=== PATIENT | male | born 1960 | race Caucasian/White ===

== ENCOUNTER 2021-07-23 17:08 | Inpatient (IN) ==
[2021-07-23] MEDS ORDERED: Ondansetron 4 MG/2 ML VIAL IVP ONE (21:10)
[2021-07-23] MEDS ORDERED: Morphine Sulfate 2 MG/ML SYRINGE IVP ONE (21:10)
[2021-07-23 21:20] LABS: Basophils # 0.1 K/mcL (0.0-0.2); Basophils % 0.6 %; Eosinophils # 0.2 K/mcL (0.0-0.6); Eosinophils % 1.9 %; Hematocrit 33.7 % (37.5-50.1); Hemoglobin 10.6 g/dL (12.9-16.9); Immature Granulocytes % 1.1 % (0-4); Lymphocytes % 17.2 %; Mean Corpuscular HGB Conc 31.5 g/dL (31.6-35.5); Mean Corpuscular Hemoglobin 32.5 pg (28.0-33.3); Mean Corpuscular Volume 103.4 fL (83.0-100.0); Mean Platelet Volume 9.5 fL (9.4-12.4); Monocytes # 0.9 K/mcL (0.0-1.3); Monocytes % 7.9 %; Neutrophils # 8.4 K/mcL (1.6-8.9); Platelet Count 250 K/mcL (140-400); Red Blood Count 3.26 M/mcL (4.19-5.50); Red Cell Distribution Width 12.8 % (11.5-14.5); Segmented Neutrophils % 71.3 %; White Blood Count 11.7 K/mcL (4.3-11.1)
[2021-07-23 21:30] LABS: Prothrombin Time 11.4 Seconds (9.4-12.1)
[2021-07-23 21:43] LABS: Alanine Aminotransferase 12 Units/L (7-52); Albumin 4.2 g/dL (3.5-5.7); Albumin/Globulin Ratio 1.4 (1.1-2.2); Alkaline Phosphatase 106 Units/L (34-104); Aspartate Amino Transferase 13 Units/L (13-39); BUN/Creatinine Ratio 10 (6-26); Bilirubin,Total 0.3 mg/dL (0.3-1.0); Blood Urea Nitrogen 13 mg/dL (8-23); C-Reactive Protein 20 mg/L (Less than 10); Calcium 9.3 mg/dL (8.6-10.3); Carbon Dioxide 24 mEq/L (23-29); Chloride 106 mEq/L (98-107); Globulin 2.9 g/dL (2.4-3.5); Glucose 122 mg/dL (70-105); Osmolality,Calculated 283 (280-300); Potassium 4.4 mEq/L (3.5-5.1); Sodium 136 mEq/L (136-145); Total Protein 7.1 g/dL (6.4-8.9); eGFR For African Americans > 60 (> 60); eGFR For Non-African Americans 54 (> 60)
[2021-07-23 21:44] LABS: Troponin I < 0.03 ng/mL (< 0.04)
[2021-07-23] MEDS ORDERED: Bumetanide 1 MG/4 ML VIAL IVP STA (22:25)
[2021-07-23] MEDS ORDERED: cephALEXin 500 MG CAPSULE PO ONE (22:25)
[2021-07-23 23:53] LABS: Influenza A PCR Negative (Negative); Influenza B PCR Negative (Negative); Resp. Syncytial Virus PCR Negative (Negative); SARS-CoV-2 by PCR (In House) Negative (Negative)
[2021-07-24] MEDS ORDERED: Naloxone 0.4 MG/ML INJ IVP PRN (02:35)
[2021-07-24] MEDS ORDERED: Furosemide 20 MG/2 ML VIAL IVP ONE (02:43)
[2021-07-24] MEDS ORDERED: Perflutren Lipid Microsphere 1.3 ML in 0.9 % Sodium Chloride 8.7 ML IVP PRN (03:16)
[2021-07-24] MEDS: Nicotine 14 MG PATCH.TD24 TD SCH (03:29)
[2021-07-24] MEDS: *HR* HYDROcodone/Acet 5/325 mg TABLET PO PRN (03:33)
[2021-07-24] MEDS: Levalbuterol Neb 1.25 MG/3 ML IH SCH ×4 (03:52→21:01)
[2021-07-24 05:03] LABS: Hematocrit 31.8 % (37.5-50.1); Hemoglobin 9.6 g/dL (12.9-16.9); Mean Corpuscular HGB Conc 30.2 g/dL (31.6-35.5); Mean Corpuscular Hemoglobin 31.8 pg (28.0-33.3); Mean Corpuscular Volume 105.3 fL (83.0-100.0); Mean Platelet Volume 9.4 fL (9.4-12.4); Platelet Count 202 K/mcL (140-400); Red Blood Count 3.02 M/mcL (4.19-5.50); Red Cell Distribution Width 12.9 % (11.5-14.5); White Blood Count 9.1 K/mcL (4.3-11.1)
[2021-07-24 05:21] LABS: Chol/HDL Ratio 4.1 (0-4.9); Magnesium 1.6 mg/dL (1.6-2.6)
[2021-07-24 05:26] LABS: BUN/Creatinine Ratio 10 (6-26); Blood Urea Nitrogen 14 mg/dL (8-23); Calcium 8.8 mg/dL (8.6-10.3); Carbon Dioxide 23 mEq/L (23-29); Chloride 110 mEq/L (98-107); Glucose 121 mg/dL (70-105); Iron 50 mcg/dL (65-175); Osmolality,Calculated 282 (280-300); Potassium 4.5 mEq/L (3.5-5.1); Sodium 135 mEq/L (136-145); Troponin I < 0.03 ng/mL (< 0.04); eGFR For African Americans > 60 (> 60); eGFR For Non-African Americans 54 (> 60)
[2021-07-24 05:43] LABS: % Iron Saturation 17 % (20-55); Transferrin 213 mg/dL (203-362)
[2021-07-24 05:44] LABS: Ferritin 66 ng/mL (20-250)
[2021-07-24 05:50] LABS: Folate 6.1 ng/mL (3.0-16.0)
[2021-07-24] MEDS ORDERED: cefTRIAXone 1,000 MG in 0.9 % Sodium Chloride Mini Bag 100 ML IVPB SCH (06:00)
[2021-07-24 06:18] LABS: Estimated Average Glucose 143 mg/dl; Hemoglobin A1C 6.6 %
[2021-07-24] MEDS: *HR* Heparin 5,000 UNIT/ML VIAL SQ SCH ×3 (06:33→20:16)
[2021-07-24] MEDS: *HR* OxyCODONE Immed Rel 5 MG TABLET PO PRN ×2 (09:04→20:22)
[2021-07-24] MEDS: Doxycycline 100 MG CAPSULE PO SCH ×2 (11:37→20:15)
[2021-07-24] MEDS: Cyanocobalamin (B-12) 1,000 MCG TABLET PO SCH (16:06)
[2021-07-24] MEDS ORDERED: Furosemide 20 MG/2 ML VIAL IVP SCH (21:00)
[2021-07-25] MEDS: Acetaminophen 325 MG TABLET PO PRN (01:10)
[2021-07-25] MEDS: Levalbuterol Neb 1.25 MG/3 ML IH SCH ×2 (03:54→07:57)
[2021-07-25 05:24] LABS: Hematocrit 31.9 % (37.5-50.1); Hemoglobin 9.9 g/dL (12.9-16.9); Mean Corpuscular Hemoglobin 32.4 pg (28.0-33.3); Mean Corpuscular Volume 104.2 fL (83.0-100.0); Mean Platelet Volume 9.3 fL (9.4-12.4); Platelet Count 215 K/mcL (140-400); Red Blood Count 3.06 M/mcL (4.19-5.50); Red Cell Distribution Width 12.6 % (11.5-14.5); White Blood Count 10.7 K/mcL (4.3-11.1)
[2021-07-25 05:40] LABS: Calcium 8.9 mg/dL (8.6-10.3); Potassium 4.9 mEq/L (3.5-5.1)
[2021-07-25] MEDS: *HR* Heparin 5,000 UNIT/ML VIAL SQ SCH ×3 (05:57→23:24)
[2021-07-25] MEDS: Doxycycline 100 MG CAPSULE PO SCH ×2 (07:46→20:13)
[2021-07-25] MEDS: Cyanocobalamin (B-12) 1,000 MCG TABLET PO SCH (07:46)
[2021-07-25] MEDS: Nicotine 14 MG PATCH.TD24 TD SCH (07:46)
[2021-07-25] MEDS: *HR* OxyCODONE Immed Rel 5 MG TABLET PO PRN (07:49)
[2021-07-25] MEDS: Ondansetron 4 MG/2 ML VIAL IVP PRN (08:49)
[2021-07-25] MEDS ORDERED: Albumin 25% 25gram/100mL 25 GM/100 ML IV.SOLN IVPB ONE (10:23)
[2021-07-25] MEDS ORDERED: Ipratropium/Albuterol Neb 3 ML IH PRN (10:25)
[2021-07-25] MEDS: Sennosides/Docusate Sodium TABLET PO SCH ×2 (11:11→20:14)
[2021-07-25] MEDS: Ranolazine 500 MG TAB.ER.12H PO SCH ×2 (11:11→20:14)
[2021-07-25] MEDS ORDERED: Furosemide 20 MG/2 ML VIAL IVP ONE (12:00)
[2021-07-25] MEDS ORDERED: Sennosides/Docusate Sodium TABLET PO SCH (13:00)
[2021-07-25] MEDS: *HR* HYDROcodone/Acet 5/325 mg TABLET PO PRN ×2 (13:34→20:12)
[2021-07-25 15:34] LABS: Bilirubin,Urine Negative (Negative); Blood,Urine Negative (Negative); Clarity,Urine Clear (Clear); Color,Urine Colorless (Yellow); Glucose,Urine (UA) Normal (Normal); Ketones,Urine Negative (Negative); Leukocyte Esterase,Urine Negative (Negative); Nitrite,Urine Negative (Negative); Protein,Urine Negative (Neg-Trace); Urobilinogen,Urine Normal (Normal)
[2021-07-25 15:36] LABS: Creatinine,Urine 44 mg/dL
[2021-07-26 03:18] LABS: Hematocrit 32.3 % (37.5-50.1); Hemoglobin 9.8 g/dL (12.9-16.9); Mean Corpuscular HGB Conc 30.3 g/dL (31.6-35.5); Mean Corpuscular Hemoglobin 31.5 pg (28.0-33.3); Mean Corpuscular Volume 103.9 fL (83.0-100.0); Mean Platelet Volume 9.4 fL (9.4-12.4); Platelet Count 198 K/mcL (140-400); Red Blood Count 3.11 M/mcL (4.19-5.50); Red Cell Distribution Width 12.4 % (11.5-14.5); White Blood Count 8.3 K/mcL (4.3-11.1)
[2021-07-26 03:42] LABS: BUN/Creatinine Ratio 12 (6-26); Blood Urea Nitrogen 17 mg/dL (8-23); Calcium 9.3 mg/dL (8.6-10.3); Carbon Dioxide 27 mEq/L (23-29); Chloride 104 mEq/L (98-107); Glucose 128 mg/dL (70-105); Osmolality,Calculated 283 (280-300); Potassium 4.6 mEq/L (3.5-5.1); Sodium 135 mEq/L (136-145); eGFR For African Americans > 60 (> 60); eGFR For Non-African Americans 52 (> 60)
[2021-07-26] MEDS: *HR* HYDROcodone/Acet 5/325 mg TABLET PO PRN ×2 (04:45→14:12)
[2021-07-26] MEDS: *HR* Heparin 5,000 UNIT/ML VIAL SQ SCH ×3 (04:47→19:39)
[2021-07-26] MEDS: Cyanocobalamin (B-12) 1,000 MCG TABLET PO SCH (08:23)
[2021-07-26] MEDS: Ranolazine 500 MG TAB.ER.12H PO SCH ×2 (08:23→19:35)
[2021-07-26] MEDS: Sennosides/Docusate Sodium TABLET PO SCH ×2 (08:23→19:38)
[2021-07-26] MEDS: Doxycycline 100 MG CAPSULE PO SCH ×2 (08:23→19:38)
[2021-07-26] MEDS: Nicotine 14 MG PATCH.TD24 TD SCH (08:23)
[2021-07-26] MEDS: *HR* OxyCODONE Immed Rel 5 MG TABLET PO PRN ×2 (08:23→19:37)
[2021-07-26] MEDS: Ondansetron 4 MG/2 ML VIAL IVP PRN ×2 (08:28→21:29)
[2021-07-26] MEDS ORDERED: Albumin 25% 25gram/100mL 25 GM/100 ML IV.SOLN IVPB ONE (11:14)
[2021-07-26] MEDS ORDERED: Furosemide 20 MG/2 ML VIAL IVP ONE (11:30)
[2021-07-26] MEDS: Melatonin 3 MG TABLET PO SCH (22:17)
[2021-07-27] MEDS: Acetaminophen 325 MG TABLET PO PRN
[2021-07-27 05:08] LABS: Hematocrit 32.4 % (37.5-50.1); Hemoglobin 10.1 g/dL (12.9-16.9); Mean Corpuscular HGB Conc 31.2 g/dL (31.6-35.5); Mean Corpuscular Hemoglobin 31.5 pg (28.0-33.3); Mean Corpuscular Volume 100.9 fL (83.0-100.0); Mean Platelet Volume 9.2 fL (9.4-12.4); Platelet Count 194 K/mcL (140-400); Red Blood Count 3.21 M/mcL (4.19-5.50); Red Cell Distribution Width 12.1 % (11.5-14.5); White Blood Count 8.5 K/mcL (4.3-11.1)
[2021-07-27 05:23] LABS: BUN/Creatinine Ratio 14 (6-26); Blood Urea Nitrogen 20 mg/dL (8-23); Calcium 9.6 mg/dL (8.6-10.3); Carbon Dioxide 30 mEq/L (23-29); Chloride 104 mEq/L (98-107); Glucose 104 mg/dL (70-105); Osmolality,Calculated 287 (280-300); Potassium 4.8 mEq/L (3.5-5.1); Sodium 137 mEq/L (136-145); eGFR For African Americans > 60 (> 60); eGFR For Non-African Americans 52 (> 60)
[2021-07-27] MEDS: *HR* Heparin 5,000 UNIT/ML VIAL SQ SCH ×3 (05:50→21:00)
[2021-07-27] MEDS: *HR* OxyCODONE Immed Rel 5 MG TABLET PO PRN ×3 (05:50→20:59)
[2021-07-27] MEDS: Nicotine 14 MG PATCH.TD24 TD SCH (09:33)
[2021-07-27] MEDS: Ranolazine 500 MG TAB.ER.12H PO SCH ×2 (09:33→20:59)
[2021-07-27] MEDS: Sennosides/Docusate Sodium TABLET PO SCH ×2 (09:33→20:59)
[2021-07-27] MEDS: Cyanocobalamin (B-12) 1,000 MCG TABLET PO SCH (09:33)
[2021-07-27] MEDS: Doxycycline 100 MG CAPSULE PO SCH ×2 (09:33→21:00)
[2021-07-27] MEDS: *HR* HYDROcodone/Acet 5/325 mg TABLET PO PRN (09:36)
[2021-07-27] MEDS: Ondansetron 4 MG/2 ML VIAL IVP PRN (09:36)
[2021-07-27] MEDS: amLODIPine 5 MG TABLET PO SCH (12:42)
[2021-07-27] MEDS ORDERED: Furosemide 20 MG/2 ML VIAL IVP ONE ×2 (13:45→18:00)
[2021-07-27] MEDS: Albumin 25% 25gram/100mL 25 GM/100 ML IV.SOLN IVPB SCH (16:14)
[2021-07-27] MEDS: Melatonin 3 MG TABLET PO SCH (20:59)
[2021-07-28] MEDS: Albumin 25% 25gram/100mL 25 GM/100 ML IV.SOLN IVPB SCH ×2 (00:04→08:01)
[2021-07-28 05:14] LABS: Hemoglobin 9.1 g/dL (12.9-16.9); Mean Corpuscular HGB Conc 31.4 g/dL (31.6-35.5); Mean Corpuscular Hemoglobin 31.5 pg (28.0-33.3); Mean Corpuscular Volume 100.3 fL (83.0-100.0); Mean Platelet Volume 9.6 fL (9.4-12.4); Platelet Count 177 K/mcL (140-400); Red Blood Count 2.89 M/mcL (4.19-5.50); Red Cell Distribution Width 12.2 % (11.5-14.5); White Blood Count 7.1 K/mcL (4.3-11.1)
[2021-07-28 05:30] LABS: Calcium 9.7 mg/dL (8.6-10.3); Potassium 4.3 mEq/L (3.5-5.1)
[2021-07-28] MEDS: *HR* Heparin 5,000 UNIT/ML VIAL SQ SCH ×3 (06:13→22:25)
[2021-07-28] MEDS: *HR* OxyCODONE Immed Rel 5 MG TABLET PO PRN ×3 (06:18→20:01)
[2021-07-28] MEDS: Nicotine 14 MG PATCH.TD24 TD SCH (08:04)
[2021-07-28] MEDS: Cyanocobalamin (B-12) 1,000 MCG TABLET PO SCH (08:04)
[2021-07-28] MEDS: Doxycycline 100 MG CAPSULE PO SCH ×2 (08:04→20:01)
[2021-07-28] MEDS: amLODIPine 5 MG TABLET PO SCH (08:04)
[2021-07-28] MEDS: Sennosides/Docusate Sodium TABLET PO SCH ×2 (08:05→20:01)
[2021-07-28] MEDS: Ranolazine 500 MG TAB.ER.12H PO SCH ×2 (08:05→20:02)
[2021-07-28] MEDS: *HR* HYDROcodone/Acet 5/325 mg TABLET PO PRN (09:47)
[2021-07-28] MEDS: Ondansetron 4 MG/2 ML VIAL IVP PRN (09:47)
[2021-07-28] MEDS ORDERED: Albumin 25% 25gram/100mL 25 GM/100 ML IV.SOLN IVPB ONE (11:17)
[2021-07-28] MEDS ORDERED: Furosemide 20 MG/2 ML VIAL IVP ONE (11:30)
[2021-07-28] MEDS: Melatonin 3 MG TABLET PO SCH (20:01)
[2021-07-29 04:17] LABS: Hematocrit 30.2 % (37.5-50.1); Hemoglobin 9.8 g/dL (12.9-16.9); Mean Corpuscular HGB Conc 32.5 g/dL (31.6-35.5); Mean Corpuscular Hemoglobin 32.1 pg (28.0-33.3); Mean Platelet Volume 9.8 fL (9.4-12.4); Platelet Count 189 K/mcL (140-400); Red Blood Count 3.05 M/mcL (4.19-5.50); Red Cell Distribution Width 12.1 % (11.5-14.5); White Blood Count 8.9 K/mcL (4.3-11.1)
[2021-07-29 04:38] LABS: Calcium 9.4 mg/dL (8.6-10.3); Potassium 4.2 mEq/L (3.5-5.1)
[2021-07-29] MEDS: *HR* Heparin 5,000 UNIT/ML VIAL SQ SCH ×2 (05:24→12:39)
[2021-07-29] MEDS: *HR* OxyCODONE Immed Rel 5 MG TABLET PO PRN ×2 (05:31→12:39)
[2021-07-29] MEDS: Sennosides/Docusate Sodium TABLET PO SCH (08:39)
[2021-07-29] MEDS: Ranolazine 500 MG TAB.ER.12H PO SCH (08:39)
[2021-07-29] MEDS: amLODIPine 5 MG TABLET PO SCH (08:39)
[2021-07-29] MEDS: Nicotine 14 MG PATCH.TD24 TD SCH (08:40)
[2021-07-29] MEDS: Cyanocobalamin (B-12) 1,000 MCG TABLET PO SCH (08:40)
[2021-07-29] MEDS: *HR* HYDROcodone/Acet 5/325 mg TABLET PO PRN (08:44)
[2021-07-29] MEDS ORDERED: Ergocalciferol (VIT D2) 50,000 UNIT (1.25MG) CAP PO SCH (10:24)
[2021-07-29 11:04] VITALS: BP 138/69; PULSE 69; TEMP 97.7; O2SAT 92
== END 2021-07-29 15:05 | disposition home health service (06) | DRG 194 ==
LOC: 3BNU 17:08 → EMEROOARM 17:08 → SUATTDRO 07-24 00:35 → 3BNU 07-24 01:35
PROVIDERS: ADMIT Internal Medicine; ATTEND Internal Medicine

== ENCOUNTER 2022-03-06 20:24 | Inpatient (IN) ==
[2022-03-06 23:10] LABS: Basophils % 0.3 %; Eosinophils % 0.3 %; Hematocrit 32.7 % (37.5-50.1); Hemoglobin 11.7 g/dL (12.9-16.9); Immature Granulocytes % 1.4 % (0-4); Lymphocytes # 1.4 K/mcL (0.6-4.6); Lymphocytes % 11.6 %; Mean Corpuscular HGB Conc 35.8 g/dL (31.6-35.5); Mean Corpuscular Hemoglobin 31.1 pg (28.0-33.3); Mean Platelet Volume 9.2 fL (9.4-12.4); Monocytes # 0.7 K/mcL (0.0-1.3); Monocytes % 5.9 %; Neutrophils # 9.9 K/mcL (1.6-8.9); Platelet Count 220 K/mcL (140-400); Red Blood Count 3.76 M/mcL (4.19-5.50); Red Cell Distribution Width 12.3 % (11.5-14.5); Segmented Neutrophils % 80.5 %; White Blood Count 12.3 K/mcL (4.3-11.1)
[2022-03-06 23:36] LABS: Albumin 4.3 g/dL (3.5-5.7); Albumin/Globulin Ratio 1.3 (1.1-2.2); Bilirubin,Direct 0.2 mg/dL (0.0-0.2); Bilirubin,Indirect 0.4 mg/dL (0.0-1.0); Bilirubin,Total 0.6 mg/dL (0.3-1.0); Calcium 9.4 mg/dL (8.6-10.3); Globulin 3.4 g/dL (2.4-3.5); Potassium 5.2 mEq/L (3.5-5.1); Total Protein 7.7 g/dL (6.4-8.9); Troponin I 0.04 ng/mL (< 0.04)
[2022-03-06] MEDS: Ondansetron 4 MG/2 ML VIAL IVP SCH (23:43)
[2022-03-07] MEDS: 0.9 % Sodium Chloride 1,000 ML IVC SCH ×3 (00:05→16:47)
[2022-03-07 00:28] LABS: Bilirubin,Urine Negative (Negative); Blood,Urine Negative (Negative); Clarity,Urine Clear (Clear); Color,Urine Light-Yellow (Yellow); Glucose,Urine (UA) Normal (Normal); Ketones,Urine Negative (Negative); Leukocyte Esterase,Urine Negative (Negative); Nitrite,Urine Negative (Negative); PH,Urine 5.5 pH Units (5.0-8.0); Protein,Urine Negative (Neg-Trace); Urobilinogen,Urine Normal (Normal)
[2022-03-07 00:40] LABS: Protein/Creatinine Ratio,Urine 0.09 mg/mg (0.00-0.20)
[2022-03-07] MEDS ORDERED: Naloxone 0.4 MG/ML INJ IVP PRN (00:59)
[2022-03-07 03:04] LABS: Potassium 4.6 mEq/L (3.5-5.1)
[2022-03-07 03:05] LABS: Calcium 9.1 mg/dL (8.6-10.3)
[2022-03-07 05:40] LABS: Calcium 8.7 mg/dL (8.6-10.3); Potassium 4.6 mEq/L (3.5-5.1)
[2022-03-07] MEDS: *HR* Heparin 5,000 UNIT/ML VIAL SQ SCH ×3 (06:26→21:42)
[2022-03-07] MEDS: Ondansetron 4 MG/2 ML VIAL IVP SCH ×4 (06:26→23:50)
[2022-03-07 06:34] LABS: Potassium 4.5 mEq/L (3.5-5.1)
[2022-03-07 08:27] LABS: VBG HCO3 24 mEq/L (21-27); VBG PCO2 51 mmHg (41-51); VBG PH 7.28 pH Units (7.32-7.42); VBG PO2 204 mmHg (25-50)
[2022-03-07] MEDS: Hydrocortisone Sodium Succ 100 MG/2 ML VIAL IVP SCH ×3 (08:44→20:19)
[2022-03-07 09:12] LABS: Calcium 8.7 mg/dL (8.6-10.3); Potassium 4.3 mEq/L (3.5-5.1); Thyroid Stimulating Hormone 2.275 mcIU/mL (0.340-5.600); Triiodothyronine (T3) Free 2.48 pg/mL (2.50-3.90)
[2022-03-07] MEDS ORDERED: Ipratropium/Albuterol Neb 3 ML IH PRN (09:35)
[2022-03-07] MEDS ORDERED: Hydrocortisone Sodium Succ 100 MG/2 ML VIAL IVP SCH (12:00)
[2022-03-07 13:24] LABS: Creatinine,Urine 26 mg/dL
[2022-03-07 15:05] LABS: Calcium 8.8 mg/dL (8.6-10.3); Potassium 4.6 mEq/L (3.5-5.1)
[2022-03-07 16:49] LABS: Calcium 8.8 mg/dL (8.6-10.3); Potassium 4.6 mEq/L (3.5-5.1)
[2022-03-07 18:47] LABS: Calcium 8.8 mg/dL (8.6-10.3); Potassium 4.5 mEq/L (3.5-5.1)
[2022-03-07 23:11] LABS: Calcium 8.8 mg/dL (8.6-10.3); Potassium 4.3 mEq/L (3.5-5.1)
[2022-03-07 23:38] LABS: Calcium 8.8 mg/dL (8.6-10.3); Potassium 4.4 mEq/L (3.5-5.1)
[2022-03-08] MEDS: Hydrocortisone Sodium Succ 100 MG/2 ML VIAL IVP SCH ×4 (01:42→20:08)
[2022-03-08 01:50] LABS: Basophils % 0.1 %; Hematocrit 31.8 % (37.5-50.1); Hemoglobin 11.1 g/dL (12.9-16.9); Immature Granulocytes % 1.2 % (0-4); Lymphocytes # 0.8 K/mcL (0.6-4.6); Lymphocytes % 5.8 %; Mean Corpuscular HGB Conc 34.9 g/dL (31.6-35.5); Mean Corpuscular Hemoglobin 30.9 pg (28.0-33.3); Mean Corpuscular Volume 88.6 fL (83.0-100.0); Mean Platelet Volume 8.8 fL (9.4-12.4); Monocytes # 0.3 K/mcL (0.0-1.3); Monocytes % 2.4 %; Neutrophils # 12.9 K/mcL (1.6-8.9); Platelet Count 204 K/mcL (140-400); Red Blood Count 3.59 M/mcL (4.19-5.50); Red Cell Distribution Width 12.1 % (11.5-14.5); Segmented Neutrophils % 90.5 %; White Blood Count 14.3 K/mcL (4.3-11.1)
[2022-03-08 02:40] LABS: Calcium 8.9 mg/dL (8.6-10.3); Magnesium 1.9 mg/dL (1.6-2.6); Phosphorous 4.7 mg/dL (2.7-4.5); Potassium 4.3 mEq/L (3.5-5.1)
[2022-03-08] MEDS: 0.9 % Sodium Chloride 1,000 ML IVC SCH ×2 (03:28→13:49)
[2022-03-08] MEDS: *HR* Heparin 5,000 UNIT/ML VIAL SQ SCH ×2 (05:07→22:41)
[2022-03-08] MEDS: Ondansetron 4 MG/2 ML VIAL IVP SCH ×4 (05:08→20:35)
[2022-03-08 07:31] LABS: Calcium 8.9 mg/dL (8.6-10.3); Potassium 4.2 mEq/L (3.5-5.1)
[2022-03-08 08:05] LABS: Potassium 4.2 mEq/L (3.5-5.1)
[2022-03-08 12:36] LABS: Calcium 9.1 mg/dL (8.6-10.3); Potassium 4.6 mEq/L (3.5-5.1)
[2022-03-08] MEDS ORDERED: Nitroglycerin 0.4 MG TAB.SUBL SL PRN (14:56)
[2022-03-08 15:30] LABS: Calcium 9.2 mg/dL (8.6-10.3); Potassium 4.9 mEq/L (3.5-5.1)
[2022-03-08] MEDS ORDERED: Ranolazine 500 MG TAB.ER.12H PO SCH (21:00)
[2022-03-09] MEDS ORDERED: Nicotine 21 MG PATCH.TD24 TD SCH (00:30)
[2022-03-09] MEDS: 0.9 % Sodium Chloride 1,000 ML IVC SCH ×3 (01:25→23:31)
[2022-03-09] MEDS: Hydrocortisone Sodium Succ 100 MG/2 ML VIAL IVP SCH (02:06)
[2022-03-09] MEDS: Ondansetron 4 MG/2 ML VIAL IVP SCH ×4 (05:46→23:29)
[2022-03-09] MEDS: *HR* Heparin 5,000 UNIT/ML VIAL SQ SCH ×3 (05:47→20:13)
[2022-03-09] MEDS ORDERED: Naloxone 0.4 MG/ML INJ IVP PRN (07:16)
[2022-03-09] MEDS ORDERED: Nitroglycerin 0.4 MG TAB.SUBL SL PRN (07:16)
[2022-03-09] MEDS ORDERED: Ipratropium/Albuterol Neb 3 ML IH PRN (07:16)
[2022-03-09] MEDS ORDERED: Tiotropium 10 INH DOSE IH ONE (07:45)
[2022-03-09] MEDS: Tiotropium 10 INH DOSE IH SCH (08:07)
[2022-03-09] MEDS: Ranolazine 500 MG TAB.ER.12H PO SCH ×2 (08:18→20:13)
[2022-03-09] MEDS: Nicotine 21 MG PATCH.TD24 TD SCH (08:19)
[2022-03-09] MEDS ORDERED: lisinopriL 5 MG TABLET PO SCH (09:00)
[2022-03-09] MEDS ORDERED: *HR* Metformin 500 MG TABLET PO SCH (09:00)
[2022-03-09 09:42] LABS: Basophils % 0.1 %; Eosinophils % 0.1 %; Hematocrit 32.9 % (37.5-50.1); Lymphocytes % 7.3 %; Mean Corpuscular HGB Conc 33.4 g/dL (31.6-35.5); Mean Corpuscular Hemoglobin 30.6 pg (28.0-33.3); Mean Corpuscular Volume 91.6 fL (83.0-100.0); Mean Platelet Volume 8.8 fL (9.4-12.4); Monocytes # 0.6 K/mcL (0.0-1.3); Monocytes % 4.3 %; Neutrophils # 11.9 K/mcL (1.6-8.9); Platelet Count 198 K/mcL (140-400); Red Blood Count 3.59 M/mcL (4.19-5.50); Red Cell Distribution Width 12.5 % (11.5-14.5); Segmented Neutrophils % 87.2 %; White Blood Count 13.6 K/mcL (4.3-11.1)
[2022-03-09] MEDS ORDERED: Tiotropium 10 INH DOSE IH SCH (10:00)
[2022-03-09 10:01] LABS: Calcium 9.4 mg/dL (8.6-10.3); Magnesium 1.8 mg/dL (1.6-2.6); Phosphorous 2.8 mg/dL (2.7-4.5); Potassium 4.1 mEq/L (3.5-5.1)
[2022-03-09] MEDS ORDERED: *HR* HYDROmorphone (PF) 1 MG/ML SYRINGE IVP STA (17:53)
[2022-03-09 18:42] LABS: Albumin 3.8 g/dL (3.5-5.7); Albumin/Globulin Ratio 1.4 (1.1-2.2); Bilirubin,Direct 0.1 mg/dL (0.0-0.2); Bilirubin,Indirect 0.2 mg/dL (0.0-1.0); Bilirubin,Total 0.3 mg/dL (0.3-1.0); Globulin 2.7 g/dL (2.4-3.5); Total Protein 6.5 g/dL (6.4-8.9)
[2022-03-10 04:12] LABS: Calcium 9.2 mg/dL (8.6-10.3); Magnesium 1.6 mg/dL (1.6-2.6); Phosphorous 1.5 mg/dL (2.7-4.5); Potassium 3.7 mEq/L (3.5-5.1)
[2022-03-10] MEDS: Ondansetron 4 MG/2 ML VIAL IVP SCH ×3 (06:11→17:14)
[2022-03-10] MEDS: *HR* Heparin 5,000 UNIT/ML VIAL SQ SCH ×3 (06:11→20:48)
[2022-03-10] MEDS: Tiotropium 10 INH DOSE IH SCH (07:20)
[2022-03-10] MEDS: Nicotine 21 MG PATCH.TD24 TD SCH (08:46)
[2022-03-10] MEDS: Ranolazine 500 MG TAB.ER.12H PO SCH ×2 (08:46→20:48)
[2022-03-10] MEDS: 0.9 % Sodium Chloride 1,000 ML IVC SCH (12:33)
[2022-03-10] MEDS ORDERED: Ergocalciferol (VIT D2) 50,000 UNIT (1.25MG) CAP PO SCH (14:56)
[2022-03-10] MEDS: Ergocalciferol (VIT D2) 50,000 UNIT (1.25MG) CAP PO SCH (15:41)
[2022-03-11] MEDS: Ondansetron 4 MG/2 ML VIAL IVP SCH ×3 (00:09→12:07)
[2022-03-11] MEDS: 0.9 % Sodium Chloride 1,000 ML IVC SCH ×4 (00:10→23:02)
[2022-03-11] MEDS: *HR* Heparin 5,000 UNIT/ML VIAL SQ SCH ×3 (06:24→21:13)
[2022-03-11 06:36] LABS: Hematocrit 32.2 % (37.5-50.1); Hemoglobin 10.2 g/dL (12.9-16.9); Mean Corpuscular HGB Conc 31.7 g/dL (31.6-35.5); Mean Corpuscular Hemoglobin 30.7 pg (28.0-33.3); Mean Platelet Volume 8.6 fL (9.4-12.4); Platelet Count 182 K/mcL (140-400); Red Blood Count 3.32 M/mcL (4.19-5.50); Red Cell Distribution Width 13.1 % (11.5-14.5); White Blood Count 15.9 K/mcL (4.3-11.1)
[2022-03-11] MEDS: Ranolazine 500 MG TAB.ER.12H PO SCH ×2 (09:12→21:13)
[2022-03-11] MEDS: Nicotine 21 MG PATCH.TD24 TD SCH (09:12)
[2022-03-11] MEDS: Tiotropium 10 INH DOSE IH SCH (11:16)
[2022-03-12 05:18] LABS: Hematocrit 27.9 % (37.5-50.1); Hemoglobin 9.1 g/dL (12.9-16.9); Mean Corpuscular HGB Conc 32.6 g/dL (31.6-35.5); Mean Corpuscular Hemoglobin 30.8 pg (28.0-33.3); Mean Corpuscular Volume 94.6 fL (83.0-100.0); Mean Platelet Volume 9.1 fL (9.4-12.4); Platelet Count 185 K/mcL (140-400); Red Blood Count 2.95 M/mcL (4.19-5.50); White Blood Count 14.8 K/mcL (4.3-11.1)
[2022-03-12] MEDS: *HR* Heparin 5,000 UNIT/ML VIAL SQ SCH ×3 (05:32→21:42)
[2022-03-12 05:36] LABS: Calcium 8.8 mg/dL (8.6-10.3); Phosphorous 2.9 mg/dL (2.7-4.5); Potassium 3.5 mEq/L (3.5-5.1)
[2022-03-12] MEDS: Tiotropium 10 INH DOSE IH SCH (07:31)
[2022-03-12] MEDS: Ranolazine 500 MG TAB.ER.12H PO SCH ×2 (09:32→21:42)
[2022-03-12] MEDS: Nicotine 21 MG PATCH.TD24 TD SCH (09:33)
[2022-03-12] MEDS: Ergocalciferol (VIT D2) 50,000 UNIT (1.25MG) CAP PO SCH (09:34)
[2022-03-12] MEDS: 0.9 % Sodium Chloride 1,000 ML IVC SCH ×2 (11:22→16:17)
[2022-03-12] MEDS ORDERED: *HR* HYDROcodone/Acet 5/325 mg TABLET PO ONE (21:50)
[2022-03-13 04:13] LABS: Hematocrit 27.2 % (37.5-50.1); Hemoglobin 8.9 g/dL (12.9-16.9); Mean Corpuscular HGB Conc 32.7 g/dL (31.6-35.5); Mean Corpuscular Hemoglobin 30.7 pg (28.0-33.3); Mean Corpuscular Volume 93.8 fL (83.0-100.0); Platelet Count 182 K/mcL (140-400); Red Cell Distribution Width 12.9 % (11.5-14.5); White Blood Count 13.1 K/mcL (4.3-11.1)
[2022-03-13 04:31] LABS: Calcium 8.7 mg/dL (8.6-10.3); Potassium 3.4 mEq/L (3.5-5.1)
[2022-03-13] MEDS: *HR* Heparin 5,000 UNIT/ML VIAL SQ SCH (05:21)
[2022-03-13] MEDS: Tiotropium 10 INH DOSE IH SCH (08:11)
[2022-03-13] MEDS: Nicotine 21 MG PATCH.TD24 TD SCH (09:13)
[2022-03-13] MEDS: Ranolazine 500 MG TAB.ER.12H PO SCH ×2 (09:13→20:10)
[2022-03-13] MEDS ORDERED: Moderna COVID-19 Vac ,BIVALENT BOOSTER 50 MCG/0.5 ML VIAL IM ONE (11:27)
[2022-03-13 18:52] LABS: Influenza A PCR Negative (Negative); Influenza B PCR Negative (Negative); Resp. Syncytial Virus PCR Negative (Negative)
[2022-03-13 18:57] LABS: SARS-CoV-2 by PCR (In House) Negative (Negative)
[2022-03-13] MEDS: Ondansetron 4 MG/2 ML VIAL IVP PRN (20:08)
[2022-03-13] MEDS ORDERED: *HR* HYDROcodone/Acet 5/325 mg TABLET PO ONE (20:15)
[2022-03-14] MEDS: Ondansetron 4 MG/2 ML VIAL IVP PRN ×2 (05:26→13:06)
[2022-03-14] MEDS ORDERED: *HR* Enoxaparin 40 MG/0.4 ML SYRINGE SQ SCH (06:00)
[2022-03-14] MEDS: Tiotropium 10 INH DOSE IH SCH (07:33)
[2022-03-14] MEDS: Ranolazine 500 MG TAB.ER.12H PO SCH (09:24)
[2022-03-14] MEDS: Nicotine 21 MG PATCH.TD24 TD SCH (09:25)
[2022-03-14 11:22] VITALS: BP 129/57; PULSE 96; TEMP 102.5; O2SAT 94
== END 2022-03-14 14:13 | DRG 469 ==
LOC: EMEROOARM 20:24 → ICNU 03-07 01:45 → SUATTDRO 03-07 01:45 → ICNU 03-07 02:25 → 2ANU 03-09 13:31
PROVIDERS: ADMIT Internal Medicine; ATTEND Internal Medicine